=== PATIENT | male | born 2000 ===

== ENCOUNTER 2020-09-21 22:47 | Emergency (ER) | payer SELFPAY ==
[~2020-09-21] VITALS: Ht 165.1 cm; Wt 104.3 kg
[2020-09-21 22:50] VITALS: BP 129/66
--- NOTE | 2020-09-21 22:50 | NUR ---
PT AMBULATED TO CHAIR C FROM [facility]
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
[2020-09-21] MEDS ORDERED: ALBUTEROL SULFATE/IPRATROPIU 3 ML SOL IH ONE (23:05)
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
--- NOTE | 2020-09-21 23:11 | NUR ---
PT LEFT FACILITY WITHOUT DISCHARGE PAPERWORK.
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
== END 2020-09-21 23:11 | disposition home or self-care (01) ==
LOC: MED 22:47
DX: R07.89 Other chest pain (principal); R06.02 Shortness of breath; R05 Cough
CPT/HCPCS: 93005; 99283